=== PATIENT | male | born 1990 | race Caucasian/White ===

== ENCOUNTER 2019-02-15 16:54 | Emergency (ER) | payer SELFPAY ==
[~2019-02-15] VITALS: Ht 177.8 cm; Wt 84.8 kg
[~2019-02-15 16:54] MED LIST: Bactrim Ds Tab1 EACH PO; CEPH500 PO; Flomax0.4 MG PO; HYDACE5 PO; Norco 10-325 T1 EACH PO; Pedi-Dri 100,0060 GM TOP; Zofran4 MG PO
== END 2019-02-15 18:03 | disposition home or self-care (01) ==
LOC: ER 16:54
DX: R50.9 Fever, unspecified (principal); F17.210 Nicotine dependence, cigarettes, uncomplicated
CPT/HCPCS: 71046; 99283-25

== ENCOUNTER 2022-04-22 08:31 | Emergency (ER) | payer OTHER ==
[~2022-04-22] VITALS: Ht 177.8 cm; Wt 86.2 kg
[2022-04-22] MEDS ORDERED: Percocet 5-3251 EACH PO (11:28)
== END 2022-04-22 11:55 | disposition home or self-care (01) ==
LOC: ER 08:31
DX: S92.312A Displaced fracture of first metatarsal bone, left foot, initial encounter for closed fracture (principal); S92.412A Displaced fracture of proximal phalanx of left great toe, initial encounter for closed fracture; S92.331A Displaced fracture of third metatarsal bone, right foot, initial encounter for closed fracture; W23.0XXA Caught, crushed, jammed, or pinched between moving objects, initial encounter; Y99.0 Civilian activity done for income or pay; F17.210 Nicotine dependence, cigarettes, uncomplicated
CPT/HCPCS: 29515; 73630; 96372; 99283-25; A9270; J1885

== ENCOUNTER 2022-04-30 11:50 | Day surgery (SDC) | payer OTHER ==
[~2022-04-30] VITALS: Ht 177.8 cm; Wt 85.9 kg
[~2022-04-30 11:50] MED LIST changes: +Percocet 5-3251 EACH PO
--- NOTE | 2022-04-30 13:48 | NUR ---
04/30/22 1348 SANDEE NEGRON 0.25MG OF EPI (1MG/1ML) ADDED TO 50MLS OF BUPIVACAINE 0.5% TO CREATE A LOCAL SOLUTION OF BUPIVACAINE 0.5% WITH EPI 1:200,000. 20MLS OF LOCAL INJECTED AT BEGINNING OF CASE BY DR. BUCKLEY INTO L FOOT
--- NOTE | 2022-04-30 14:59 | NUR ---
04/30/[address] AT BEDSIDE LMA REMOVED AND PT SECRETIONS SUCTIONED UPON WAKING.
== END 2022-04-30 15:48 | disposition home or self-care (01) ==
LOC: ORSCSDS 11:50
PROVIDERS: Podiatrist Foot & Ankle Surgery
PROC: 0QSP04Z Reposition Left Metatarsal with Internal Fixation Device, Open Approach (ICD-10-PCS; principal; 2022-04-30 13:15)
DX: S92.312A Displaced fracture of first metatarsal bone, left foot, initial encounter for closed fracture (principal); F17.210 Nicotine dependence, cigarettes, uncomplicated
CPT/HCPCS: C1713; J0171; J0690; J1100; J2001; J2250; J2405; J2704; J3010

== ENCOUNTER 2022-06-05 14:53 | Emergency (ER) | payer OTHER ==
[~2022-06-05] VITALS: Ht 177.8 cm; Wt 86.2 kg
== END 2022-06-05 16:14 | disposition home or self-care (01) ==
LOC: ER 14:53
DX: Z47.89 Encounter for other orthopedic aftercare (principal); F17.210 Nicotine dependence, cigarettes, uncomplicated
CPT/HCPCS: 99282

== ENCOUNTER → 2023-02-17 | Outpatient (CLI) | payer OTHER ==
[2023-02-17 13:42] LABS: BASOPHILS ABSOLUTE AUTO 0.07 K/mm3 (0.00-0.23); BASOPHILS PERCENT AUTO 1 % (0-2); EOSINOPHILS ABSOLUTE AUTO 0.09 K/mm3 (0.00-0.68); EOSINOPHILS PERCENT AUTO 1 % (0-6); Hematocrit 45.6 % (37.0-53.0); Hemoglobin 15.5 g/dL (13.5-17.5); IMMATURE GRAN ABSOLUTE AUTO 0.02 K/mm3 (0.00-0.10); IMMATURE GRAN PERCENT AUTO 0 % (0-1); LYMPHOCYTES ABSOLUTE AUTO 2.69 K/mm3 (0.84-5.20); LYMPHOCYTES PERCENT AUTO 28 % (21-46); MONOCYTES ABSOLUTE AUTO 0.53 K/mm3 (0.16-1.47); MONOCYTES PERCENT AUTO 6 % (4-13); Mean Corpuscular HGB 30.6 pg (26.0-34.0); Mean Corpuscular Volume 90 fL (80-100); Mean Platelet Volume 10.8 fL (9.1-12.4); NEUTROPHILS PERCENT AUTO 64 % (41-73); Platelet Count 333 K/mm3 (150-400); RDW Standard Deviation 42.4 fL (35.1-46.3); Red Blood Cell Count 5.07 M/mm3 (4.30-5.90)
[2023-02-17 13:50] LABS: Albumin, Blood 4.2 g/dL (3.4-5.0); Albumin/Globulin Ratio 1.2 (0.8-1.8); Bilirubin, Total 0.5 mg/dL (0.1-1.0); Bun/Creatinine Ratio 13.9 (12.0-20.0); Creatinine, Blood 1.08 mg/dL (0.60-1.20); Globulin, Blood 3.5 g/dL (2.2-4.0); Potassium, Blood 4.3 mmol/L (3.5-5.5); Total Protein, Blood 7.7 g/dL (6.4-8.2)
== END | disposition home or self-care (01) ==
LOC: LAB SHORT 13:35 → LAB 13:35
PROVIDERS: Chiropractor
DX: R10.9 Unspecified abdominal pain (principal)
CPT/HCPCS: 80053; 83690; 85025